=== PATIENT | female | born 1930 | race Caucasian/White ===

== ENCOUNTER 2017-03-22 12:27 | Emergency (ER) | payer MEDICARE, BC ==
[2017-03-22 12:31] VITALS: BP 196/93; PULSE 86; RESP 20; TEMP 98.4
--- NOTE | 2017-03-22 13:10 | XR ---
EXAMINATION TYPE: XR hand complete RT DATE OF EXAM: 03/22/2017 COMPARISON: NONE HISTORY: Fall, pain TECHNIQUE: Three-view right hand FINDINGS: Patient's ring remains in position during the exam There is an oblique fracture of the mid metacarpal of the middle finger. No additional fractures are identified. This has minimal diastases. Mild soft tissue swelling is present. IMPRESSION: 1. Oblique fracture middle digit metacarpal.
--- NOTE | 2017-03-22 13:12 | XR ---
EXAMINATION TYPE: XR wrist complete RT DATE OF EXAM: 03/22/2017 COMPARISON: NONE HISTORY: Fall, pain TECHNIQUE: 4 view right wrist FINDINGS: Patient's third metacarpal oblique fracture is evident within the [id number] There are degenerative changes at the first carpal metacarpal junction. No additional fractures are e vident. Some soft tissue swelling is over the dorsum of the hand. There is pain at the anatomic snuff box, nuclear medicine bone scan could be performed for additional evaluation. IMPRESSION: 1. Fracture of the third metacarpal. 2. No additional fractures within the wrist.
--- NOTE | 2017-03-22 13:18 | ED ---
General Adult HPI - General Chief complaint: Extremity Injury, Lower Stated complaint: Hand Injury Time Seen by Provider: 03/22/17 12:33 Source: patient, RN notes reviewed, old records reviewed Mode of arrival: ambulatory Limitations: no limitations - History of Present Illness Initial comments: This is an 87-year-old female ESS.. Patient fell about and half prior to arrival. Following on right outstretched hand. Mild abrasion right palm, complaining of middle finger pain. No other injuries, did not hit head. Patient denies being on blood thinners. Follows mechanical in nature - Related Data Home Medications Medication Instructions Recorded Confirmed ALPRAZolam [Xanax] 0.5 mg PO DAILY PRN 06/15/16 03/22/17 Atorvastatin Calcium [Lipitor] 10 mg PO DAILY 06/15/16 03/22/17 Levothyroxine Sodium [Synthroid] 125 mcg PO DAILY 06/15/16 03/22/17 cloNIDine HCL [Catapres] 1 tab PO DAILY 06/15/16 03/22/17 Allergies Allergy/AdvReac Type Severity Reaction Status Date / Time alendronate sodium Allergy Rash/Hives Verified 03/22/17 12:31 [From Fosamax] bacitracin Allergy Rash/Hives Verified 03/22/17 12:31 [From Neosporin ([id number])] denosumab [From Prolia] Allergy Anaphylaxis Verified 03/22/17 12:31 epinephrine Allergy Unknown Verified 03/22/17 12:31 ibuprofen [From Motrin] Allergy Unknown Verified 03/22/17 12:31 levofloxacin [From Levaquin] Allergy Rash/Hives Verified 03/22/17 12:31 neomycin Allergy Rash/Hives Verified 03/22/17 12:31 [From Neosporin ([id number])] polymyxin B Allergy Rash/Hives Verified 03/22/17 12:31 [From Neosporin ([id number])] ranitidine [From Zantac] Allergy Rash/Hives Verified 03/22/17 12:31 Sulfa (Sulfonamide Allergy Rash/Hives Verified 03/22/17 12:31 Antibiotics) Review of Systems ROS Statement: Those systems with pertinent positive or pertinent negative responses have been documented in the HPI. ROS Other: All systems not noted in ROS Statement are negative. Past Medical History Past Medical History: Hypertension History of Any Multi-Drug Resistant Organisms: None Reported Past Surgical History: Hysterectomy Additional Past Surgical History / Comment(s): rectocele, muscle transplants, wrist surgery Past Psychological History: No Psychological Hx Reported Smoking Status: Never smoker Past Alcohol Use History: Occasional Past Drug Use History: None Reported General Exam - General Exam Comments Initial Comments: Mild abrasion the palm of right hand, third metacarpal tenderness Limitations: no limitations General appearance: alert, in no apparent distress Head exam: Present: atraumatic, normocephalic, normal inspection Eye exam: Present: normal appearance, PERRL, EOMI. Absent: scleral icterus, conjunctival injection, periorbital swelling ENT exam: Present: normal exam, mucous membranes moist Neck exam: Present: normal inspection. Absent: tenderness, meningismus, lymphadenopathy Respiratory exam: Present: normal lung sounds bilaterally. Absent: respiratory distress, wheezes, rales, rhonchi, stridor Cardiovascular Exam: Present: regular rate, normal rhythm, normal heart sounds. Absent: systolic murmur, diastolic murmur, rubs, gallop, clicks GI/Abdominal exam: Present: soft, normal bowel sounds. Absent: distended, tenderness, guarding, rebound, rigid Extremities exam: Present: normal inspection, full ROM, normal capillary refill. Absent: tenderness, pedal edema, joint swelling, calf tenderness Back exam: Present: normal inspection Neurological exam: Present: alert, oriented X3, CN II-XII intact Psychiatric exam: Present: normal affect, normal mood Skin exam: Present: warm, dry, intact, normal color. Absent: rash Course Vital Signs 03/22/17 12:29 Temperature 98.4 F Pulse Rate 86 Respiratory 20 Rate Blood Pressure 196/93 O2 Sat by Pulse 96 Oximetry Procedures - Orthopedic Splinting/Casting Injury #1 Side: right Upper Extremity Injury Location: hand Upper Extremity Immobilizer: volar splint Medical Decision Making - Medical Decision Making 87-year-old ER status post fall, patient did sustain right third metacarpal spiral fracture nondisplaced closed fracture. A she'll be discharged home with pain control - Radiology Data Radiology results: report reviewed (X-ray right wrist right hand distal third metacarpals metacarpal spiral fracture nondisplaced), image reviewed Disposition Clinical Impression: Fracture of metacarpal of right hand, closed, Fracture of third metacarpal bone , Fall Disposition: HOME SELF-CARE Condition: Good Instructions: Hand Fracture (ED) Referrals: Mendoza Flores MD [Medical Doctor] - 1-2 days
[2017-03-22] MEDS ORDERED: DIPH,PERTUS(ACELL)TETVAC-LF 0.5 ML VIAL IM ONE (13:45)
== END 2017-03-22 14:12 | disposition home or self-care (01) ==
LOC: EC 12:27
DX: S62.302A Unspecified fracture of third metacarpal bone, right hand, initial encounter for closed fracture (principal); I10 Essential (primary) hypertension; Z23 Encounter for immunization; Z79.899 Other long term (current) drug therapy; Z88.1 Allergy status to other antibiotic agents; Z88.2 Allergy status to sulfonamides; Z88.6 Allergy status to analgesic agent; Z88.8 Allergy status to other drugs, medicaments and biological substances
CPT/HCPCS: 29125; 90471; 90715; 99284

== ENCOUNTER 2017-04-13 12:06 | Emergency (ER) | payer MEDICARE, BC ==
[2017-04-13] MEDS ORDERED: SODIUM CHLORIDE 0.9% 500 ML IV STA (13:06)
[2017-04-13] MEDS ORDERED: SODIUM CHLORIDE 0.9% 1,000 ML IV STA (13:06)
--- NOTE | 2017-04-13 13:25 | ED ---
General Adult HPI - General Chief complaint: Upper Respiratory Infection Stated complaint: POSS PNEUMONIA Time Seen by Provider: 04/13/17 12:38 Source: patient, family, RN notes reviewed Mode of arrival: wheelchair Limitations: no limitations - History of Present Illness Initial comments: If complaint history of present illness 87-year-old female here with a complaint of feeling profoundly weak. She reports she felt this way in [place] 6 months ago was diagnosed with pneumonia. Also with the same time was suspicious for a mass in her lung. After the pneumonia was completed she's had x-rays and CAT scans. The CAT scan suggesting chronic changes. She is following up with a local physician and does have a CAT scan reordered for next month. Patient's denying chest pain shortness breath or GI problems no urinary problems. - Related Data Home Medications Medication Instructions Recorded Confirmed ALPRAZolam [Xanax] 0.5 mg PO BID PRN 06/15/16 04/13/17 Atorvastatin Calcium [Lipitor] 10 mg PO DAILY 06/15/16 04/13/17 cloNIDine HCL [Catapres] 0.2 mg PO HS 06/15/16 04/13/17 Aspirin EC [Ecotrin Low Dose] 81 mg PO DAILY 03/22/17 04/13/17 Calcium Carbonate [Calcium] 1,200 mg PO DAILY 03/22/17 04/13/17 Fexofenadine HCl [Kanika Allergy] 180 mg PO QAM 03/22/17 04/13/17 Folic Acid 0.4 mg PO DAILY 03/22/17 04/13/17 Levothyroxine Sodium [Synthroid] 137 mcg PO [id number] 03/22/17 04/13/17 Montelukast [Singulair] 10 mg PO HS 03/22/17 04/13/17 Multivitamins, Thera [Multivitamin 1 tab PO DAILY 03/22/17 04/13/17 (formulary)] [place]-3/Dha/Epa/Fish Oil [Fish Oil 2 cap PO DAILY 03/22/17 04/13/17 EC 1,200 mg Softgel] amLODIPine [Norvasc] 5 mg PO DAILY 03/22/17 04/13/17 Cholecalciferol [Vitamin D3] 1,000 unit PO DAILY 04/13/17 04/13/17 Dicyclomine [Bentyl] 20 mg PO DAILY PRN 04/13/17 04/13/17 Loperamide HCl [Imodium A-D] 2 mg PO DAILY PRN 04/13/17 04/13/17 Allergies Allergy/AdvReac Type Severity Reaction Status Date / Time acetaminophen [From Percocet] Allergy Unknown Verified 04/13/17 14:36 alendronate sodium Allergy Rash/Hives Verified 04/13/17 14:36 [From Fosamax] bacitracin Allergy Rash/Hives Verified 04/13/17 14:36 [From Neosporin ([id number])] denosumab [From Prolia] Allergy Anaphylaxis Verified 04/13/17 14:36 epinephrine Allergy Unknown Verified 04/13/17 14:36 ibuprofen [From Motrin] Allergy Unknown Verified 04/13/17 14:36 levofloxacin [From Levaquin] Allergy Rash/Hives Verified 04/13/17 14:36 neomycin Allergy Rash/Hives Verified 04/13/17 14:36 [From Neosporin ([id number])] oxycodone [From Percocet] Allergy Unknown Verified 04/13/17 14:36 polymyxin B Allergy Rash/Hives Verified 04/13/17 14:36 [From Neosporin ([id number])] ranitidine [From Zantac] Allergy Rash/Hives Verified 04/13/17 14:36 Sulfa (Sulfonamide Allergy Rash/Hives Verified 04/13/17 14:36 Antibiotics) Review of Systems ROS Statement: Those systems with pertinent positive or pertinent negative responses have been documented in the HPI. Review of systems no headache or visual acuity changes no chest pain no palpitations denies shortness of breath denies abdominal pain denies frequency urgency dysuria and denies back pain. Denies any neuro deficits. Just profoundly weak when she is normally hyperactive. All systems are reviewed. Past medical problems significant for hypertension, pneumonia. She's had a hysterectomy and rectocele breast implants. Family history not respiratory. ALLERGIES as listed. Patient also he recently had a broken hand she has a cast on the hand. She has due to pressure irritation blisters between her middle and ring finger she is applying Bactroban. She will have gauze placed to absorb moisture noted prevent irritation fingers will be lightly taped with paper tape. ROS Other: All systems not noted in ROS Statement are negative. Past Medical History Past Medical History: Hypertension History of Any Multi-Drug Resistant Organisms: None Reported Past Surgical History: Hysterectomy Additional Past Surgical History / Comment(s): rectocele, muscle transplants, wrist surgery Past Psychological History: No Psychological Hx Reported Smoking Status: Never smoker Past Alcohol Use History: Occasional Past Drug Use History: None Reported General Exam - General Exam Comments Initial Comments: General: The patient is awake and alert, in no distress, and does not appear acutely ill. HEENT family weak and tired yesterday. The patient's vital signs are temperature 98.9 pulse 82 respiratory rate 20 pulse ox 90% room air blood pressure 172/90 Eye: Pupils are equal, round and reactive to light, extra-ocular movements are intact ; there is normal conjunctiva bilaterally. No signs of icterus. Ears, nose, mouth and throat: There are moist mucous membranes and no oral lesions. Neck: The neck is supple, there is no tenderness. Cardiovascular: There is a regular rate and rhythm. No murmur, rub or gallop is appreciated. Respiratory: Lungs are clear to auscultation, respirations are non-labored, breath sounds are equal. No wheezes, stridor, rales, or rhonchi. Gastrointestinal: Soft, non-distended, non-tender abdomen without masses or organomegaly noted. There is no rebound or guarding present. No CVA tenderness. Bowel sounds are unremarkable. Back: There is no tenderness to palpation in the midline. There is no obvious deformity. No rashes noted. Musculoskeletal: Normal ROM, no tenderness, There is no pedal edema. There is no calf tenderness or swelling. Sensation intact. Pulses equal bilaterally 2+. Neurological: CN II-XII intact, There are no obvious motor or sensory deficits. Coordination appears grossly intact. Speech is normal. No neuro deficits, due to her weakness she states she had a balance problem Skin: Skin is warm and dry and no rashes or lesions are noted. Limitations: no limitations Course Vital Signs 04/13/17 04/13/17 12:08 14:31 Temperature 98.9 F Pulse Rate 82 81 Respiratory 20 18 Rate Blood Pressure 172/90 162/85 O2 Sat by Pulse 98 98 Oximetry EKG Findings - EKG Comments: EKG Findings:: EKG was done and reviewed at 1339 showing normal sinus rhythm with possible left atrial enlargement left axis deviation no acute ST elevation no ectopy no ischemic changes. Rate 80 OK interval is 150 QRS [address] Buchanan Medical Decision Making - Medical Decision Making Medical decision making; the patient's white count 6.9 hemoglobin 13 and hematocrit 39. Potassium 0.1. BUN 12 creatinine 0.69 GFR greater than 60. Urine is clean no signs of infection. Troponin was 0.012. X-ray of the chest was done AP and lateral views and reviewed by radiologist his impression is curvilinear calcification in the right breast is noted. Cardiac silhouette is within the normal limits. There is no pneumothorax or pleural effusion. Impression no acute cardiopulmonary process. As read by Dr. Crews Reviewed with the patient the chest x-ray results of the lab results. The patient's very alert oriented reactive. She been advised follow-up with family physician. - Lab Data Result diagrams: 04/13/17 13:40 04/13/17 13:40 Lab Results 04/13/17 04/13/17 04/13/17 Range/Units 13:40 13:40 13:40 WBC 6.9 (3.8-10.6) k/uL RBC 4.36 (3.80-5.40) m/uL Hgb 13.4 (11.4-16.0) gm/dL Hct 39.1 (34.0-46.0) % MCV 89.5 (80.0-100.0) fL MCH 30.7 (25.0-35.0) pg MCHC 34.3 (31.0-37.0) g/dL RDW 13.8 (11.5-15.5) % Plt Count 194 (150-450) k/uL Neutrophils % 75 % Lymphocytes % 15 % Monocytes % 6 % Eosinophils % 2 % Basophils % 0 % Neutrophils # 5.2 (1.3-7.7) k/uL Lymphocytes # 1.0 (1.0-4.8) k/uL Monocytes # 0.4 (0-1.0) k/uL Eosinophils # 0.1 (0-0.7) k/uL Basophils # 0.0 (0-0.2) k/uL Sodium 141 (137-145) mmol/L Potassium 4.1 (3.5-5.1) mmol/L Chloride 106 (98-107) mmol/L Carbon Dioxide 26 (22-30) mmol/L Anion Gap 9 mmol/L BUN 12 (7-17) mg/dL Creatinine 0.69 (0.52-1.04) mg/dL Est GFR (MDRD) Af Amer >60 (>60 ml/min/1.73 sqM) Est GFR (MDRD) Non-Af >60 (>60 ml/min/1.73 sqM) Glucose 91 (74-99) mg/dL Calcium 9.2 (8.4-10.2) mg/dL Total Bilirubin 0.8 (0.2-1.3) mg/dL AST 23 (14-36) U/L ALT 35 (9-52) U/L Alkaline Phosphatase 99 (38-126) U/L Total Creatine Kinase 58 (30-135) U/L CK-MB (CK-2) 1.2 (0.0-2.4) ng/mL CK-MB (CK-2) Rel Index 2.1 Troponin I <0.012 (0.000-0.034) ng/mL Total Protein 6.4 (6.3-8.2) g/dL Albumin 4.0 (3.5-5.0) g/dL Urine Color Urine Appearance (Clear) Urine pH (5.0-8.0) Ur Specific [place] (1.001-1.035) Urine Protein (Negative) Urine Glucose (UA) (Negative) Urine Ketones (Negative) Urine Blood (Negative) Urine Nitrite (Negative) Urine Bilirubin (Negative) Urine Urobilinogen (<2.0) mg/dL Ur Leukocyte Esterase (Negative) 04/13/17 Range/Units 13:40 WBC (3.8-10.6) k/uL RBC (3.80-5.40) m/uL Hgb (11.4-16.0) gm/dL Hct (34.0-46.0) % MCV (80.0-100.0) fL MCH (25.0-35.0) pg MCHC (31.0-37.0) g/dL RDW (11.5-15.5) % Plt Count (150-450) k/uL Neutrophils % % Lymphocytes % % Monocytes % % Eosinophils % % Basophils % % Neutrophils # (1.3-7.7) k/uL Lymphocytes # (1.0-4.8) k/uL Monocytes # (0-1.0) k/uL Eosinophils # (0-0.7) k/uL Basophils # (0-0.2) k/uL Sodium (137-145) mmol/L Potassium (3.5-5.1) mmol/L Chloride (98-107) mmol/L Carbon Dioxide (22-30) mmol/L Anion Gap mmol/L BUN (7-17) mg/dL Creatinine (0.52-1.04) mg/dL Est GFR (MDRD) Af Amer (>60 ml/min/1.73 sqM) Est GFR (MDRD) Non-Af (>60 ml/min/1.73 sqM) Glucose (74-99) mg/dL Calcium (8.4-10.2) mg/dL Total Bilirubin (0.2-1.3) mg/dL AST (14-36) U/L ALT (9-52) U/L Alkaline Phosphatase (38-126) U/L Total Creatine Kinase (30-135) U/L CK-MB (CK-2) (0.0-2.4) ng/mL CK-MB (CK-2) Rel Index Troponin I (0.000-0.034) ng/mL Total Protein (6.3-8.2) g/dL Albumin (3.5-5.0) g/dL Urine Color Light Yellow Urine Appearance Clear (Clear) Urine pH 7.5 (5.0-8.0) Ur Specific [place] 1.003 (1.001-1.035) Urine Protein Negative (Negative) Urine Glucose (UA) Negative (Negative) Urine Ketones Negative (Negative) Urine Blood Negative (Negative) Urine Nitrite Negative (Negative) Urine Bilirubin Negative (Negative) Urine Urobilinogen <2.0 (<2.0) mg/dL Ur Leukocyte Esterase Negative (Negative) Disposition Clinical Impression: Weakness generalized Disposition: HOME SELF-CARE Condition: Stable Instructions: Weakness (ED) Additional Instructions: Stay hydrated. Get a good night's rest. Follow-up with family physician. Referrals: Jean Harrington DO [Primary Care Provider] - 1-2 days Time of Disposition: 15:01
[2017-04-13 14:04] LABS: Basophils % (A) 0 %; CH 31.4; CHCM 35.3; Eosinophils # (A) 0.1 k/uL (0-0.7); Eosinophils % (A) 2 %; HCT 39.1 % (34.0-46.0); HGB 13.4 gm/dL (11.4-16.0); Luc # (Auto) 0.13; Luc % (Auto) 2; Lymphocytes % (A) 15 %; MCH 30.7 pg (25.0-35.0); MCHC 34.3 g/dL (31.0-37.0); MCV 89.5 fL (80.0-100.0); Mean Platelet Volume 7.7; Monocytes # (A) 0.4 k/uL (0-1.0); Monocytes % (A) 6 %; Neutrophils # (A) 5.2 k/uL (1.3-7.7); Neutrophils % (A) 75 %; RBC 4.36 m/uL (3.80-5.40); RDW 13.8 % (11.5-15.5); WBC 6.9 k/uL (3.8-10.6); WBC (Perox) 7.15
[2017-04-13 14:06] LABS: Appearance,Urine Clear (Clear); Bilirubin,Urine Negative (Negative); Glucose,Urine (UA) Negative (Negative); Ketones,Urine Negative (Negative); Leukocyte Esterase,Urine Negative (Negative); Nitrite,Urine Negative (Negative); PH, Urine 7.5 (5.0-8.0); Protein,Urine Negative (Negative); Specific Gravity,Urine 1.003 (1.001-1.035); UA Billing (MACRO vs. MICRO) CHEM; Urobilinogen,Urine <2.0 mg/dL (<2.0)
[2017-04-13 14:14] LABS: ALT 35 U/L (9-52); AST 23 U/L (14-36); Alkaline Phosphatase 99 U/L (38-126); Anion Gap 9 mmol/L; Blood Urea Nitrogen 12 mg/dL (7-17); Calcium 9.2 mg/dL (8.4-10.2); Carbon Dioxide 26 mmol/L (22-30); Chloride 106 mmol/L (98-107); Glucose 91 mg/dL (74-99); Non-African American GFR(MDRD) >60 (>60 ml/min/1.73 sqM); Potassium 4.1 mmol/L (3.5-5.1); Sodium 141 mmol/L (137-145); Total Bilirubin 0.8 mg/dL (0.2-1.3); Total Protein 6.4 g/dL (6.3-8.2)
[2017-04-13 14:28] LABS: Creatine Kinase 58 U/L (30-135)
--- NOTE | 2017-04-13 14:32 | XR ---
EXAMINATION TYPE: XR chest 2V DATE OF EXAM: 04/13/2017 COMPARISON: NONE HISTORY: Chest pain TECHNIQUE: Frontal and lateral views of the chest are obtained. FINDINGS: Curvilinear calcification of the right breast is noted. Cardiac silhouette is within mason l limits. There is no pneumothorax or pleural effusion. IMPRESSION: No acute cardiopulmonary process.
[2017-04-13 14:40] LABS: Creatine Kinase MB 1.2 ng/mL (0.0-2.4); Troponin I <0.012 ng/mL (0.000-0.034)
[2017-04-13 15:16] VITALS: BP 141/82; PULSE 78; RESP 14; TEMP 98
== END 2017-04-13 15:25 | disposition home or self-care (01) ==
LOC: EC 12:06
DX: R53.1 Weakness (principal); I10 Essential (primary) hypertension; Z88.1 Allergy status to other antibiotic agents; Z88.2 Allergy status to sulfonamides; Z88.5 Allergy status to narcotic agent; Z88.6 Allergy status to analgesic agent; Z88.8 Allergy status to other drugs, medicaments and biological substances; Z79.82 Long term (current) use of aspirin; Z79.899 Other long term (current) drug therapy
CPT/HCPCS: 36415; 71020; 80053; 81003; 82550; 82553; 84439; 84443; 84484; 85025; 87086; 93005; 96360; 99284

== ENCOUNTER → 2017-05-19 | Outpatient (CLI) | payer MEDICARE, BC ==
--- NOTE | 2017-05-20 09:03 | MM ---
Reason for exam: screening (asymptomatic). Last mammogram was performed 1 year ago. History: Patient has history of other cancer at age 82. Family history of breast cancer in mother at age 68, breast cancer in 2 maternal cousins, and breast cancer in 2 paternal cousins. Retro-pectoral silicone gel implants in both breasts, 1975. Excisional biopsy of the left breast, 1954. Took estrogen for 42 years beginning at age 31. Physical Findings: A clinical breast exam by your physician is recommended on an annual basis and results should be correlated with mammographic findings. MG 3D Screen Mammo Imp/Cad Bilateral CC, MLO, and ID view(s) were taken. Prior study comparison: May 17, 2016, bilateral MG 3d screen mammo imp/cad. January 04, 2015, bilateral MG diagnostic mammo w CAD LESLY. The breast tissue is heterogeneously dense. This may lower the sensitivity of mammography. Stable vascular calcifications. Bilateral implants are intact. ASSESSMENT: Benign, BI-RAD 2 RECOMMENDATION: Routine screening mammogram of both breasts in 1 year.
== END | disposition home or self-care (01) ==
LOC: RADMAMWWP 14:16
PROVIDERS: ATTEND Family Medicine
DX: Z12.31 Encounter for screening mammogram for malignant neoplasm of breast (principal)
CPT/HCPCS: 77063; G0202

== ENCOUNTER 2018-01-06 11:55 | Inpatient (IN) | payer MEDICARE, BC ==
--- NOTE | 2018-01-06 12:10 | ED ---
General Adult HPI - General Chief complaint: Fall Stated complaint: Fall Time Seen by Provider: 01/06/18 12:00 Source: patient, EMS, RN notes reviewed Mode of arrival: EMS Limitations: no limitations - History of Present Illness Initial comments: This is an 87-year-old female who states she was walking steps and fell on the last step onto her left side patient complains of left wrist pain and left hip pain. Patient is able to move the hip but it hurts in her left buttocks. Patient denies hitting her head patient denies any loss of consciousness. Patient denies any neck pain patient denies numbness weakness. Patient denies any back pain patient denies any chest pain. Patient denies any abdominal pain. Patient denies any pain on the right extremity. Patient's left hand has no pain the elbow is no pain in the shoulder has no pain only her left wrist. Patient's knees ankles and feet have no pain. Patient's buttocks on the left is tender to palpation she does appear to have full range of motion of the hip however - Related Data Home Medications Medication Instructions Recorded Confirmed ALPRAZolam [Xanax] 0.5 mg PO BID PRN 06/15/16 01/06/18 Atorvastatin Calcium [Lipitor] 10 mg PO DAILY 06/15/16 01/06/18 cloNIDine HCL [Catapres] 0.2 mg PO HS 06/15/16 01/06/18 Fexofenadine HCl [Kanika Allergy] 180 mg PO QAM 03/22/17 01/06/18 Levothyroxine Sodium [Synthroid] 137 mcg PO DAILY 03/22/17 01/06/18 Montelukast [Singulair] 10 mg PO HS 03/22/17 01/06/18 Multivitamins, Thera [Multivitamin 1 tab PO DAILY 03/22/17 01/06/18 (formulary)] amLODIPine [Norvasc] 5 mg PO DAILY 03/22/17 01/06/18 Dicyclomine [Bentyl] 20 mg PO DAILY PRN 04/13/17 01/06/18 Allergies Allergy/AdvReac Type Severity Reaction Status Date / Time acetaminophen [From Percocet] Allergy Unknown Verified 01/06/18 12:03 alendronate sodium Allergy Rash/Hives Verified 01/06/18 12:03 [From Fosamax] bacitracin Allergy Rash/Hives Verified 01/06/18 12:03 [From Neosporin ([id number])] denosumab [From Prolia] Allergy Anaphylaxis Verified 01/06/18 12:03 epinephrine Allergy Unknown Verified 01/06/18 12:03 ibuprofen [From Motrin] Allergy Unknown Verified 01/06/18 12:03 levofloxacin [From Levaquin] Allergy Rash/Hives Verified 01/06/18 12:03 neomycin Allergy Rash/Hives Verified 01/06/18 12:03 [From Neosporin ([id number])] oxycodone [From Percocet] Allergy Unknown Verified 01/06/18 12:03 polymyxin B Allergy Rash/Hives Verified 01/06/18 12:03 [From Neosporin ([id number])] ranitidine [From Zantac] Allergy Rash/Hives Verified 01/06/18 12:03 Sulfa (Sulfonamide Allergy Rash/Hives Verified 01/06/18 12:03 Antibiotics) Review of Systems ROS Statement: Those systems with pertinent positive or pertinent negative responses have been documented in the HPI. ROS Other: All systems not noted in ROS Statement are negative. Past Medical History Past Medical History: Hypertension Additional Past Medical History / Comment(s): IBS, History of Any Multi-Drug Resistant Organisms: None Reported Past Surgical History: Hysterectomy Additional Past Surgical History / Comment(s): rectocele, muscle transplants, wrist surgery Past Psychological History: No Psychological Hx Reported Smoking Status: Never smoker Past Alcohol Use History: Occasional Past Drug Use History: None Reported General Exam - General Exam Comments Initial Comments: GENERAL: Patient is well-developed and well-nourished. Patient is nontoxic and well- hydrated and is in mild distress. ENT: Neck is soft and supple. No significant lymphadenopathy is noted. Oropharynx is clear. Moist mucous membranes. Neck has full range of motion without eliciting any pain. EYES: The sclera were anicteric and conjunctiva were pink and moist. Extraocular movements were intact and pupils were equal round and reactive to light. Eyelids were unremarkable. PULMONARY: Unlabored respirations. Good breath sounds bilaterally. No audible rales rhonchi or wheezing was noted. CARDIOVASCULAR: There is a regular rate and rhythm without any murmurs gallops or rubs. ABDOMEN: Soft and nontender with normal bowel sounds. SKIN: Skin is clear with no lesions or rashes and otherwise unremarkable. NEUROLOGIC: Patient is alert and oriented x3. Cranial nerves II through XII are grossly intact. Motor and sensory are also intact. Normal speech, volume and content. Symmetrical smile. MUSCULOSKELETAL: Normal extremities with adequate strength and full range of motion. Patient has tenderness on the posterior aspect of the left wrist no scaphoid tenderness. Patient has tenderness in the left buttocks region. LYMPHATICS: No significant lymphadenopathy is noted PSYCHIATRIC: Normal psychiatric evaluation. Normal interpersonal interactions appears functionally intact in deals appropriately with others. No signs of depression. No signs of anxiety. Limitations: no limitations Course Vital Signs 01/06/18 01/06/18 11:59 14:48 Temperature 98.4 F 98.9 F Pulse Rate 78 83 Respiratory 18 18 Rate Blood Pressure 145/81 139/73 O2 Sat by Pulse 99 96 Oximetry Medical Decision Making - Medical Decision Making Patient's CT of the hip showed no acute injury. Patient still unable to ambulate even with assistance. I spoke with Dr. Gaming he agreed to admit the patient admitted Disposition Clinical Impression: Fall, Hip pain, Unable to ambulate Disposition: ADMITTED IP TO THIS HOSP Referrals: Jean Harrington DO [Primary Care Provider] - 1-2 days Time of Disposition: 15:33
--- NOTE | 2018-01-06 12:43 | XR ---
EXAMINATION TYPE: XR wrist complete LT DATE OF EXAM: 01/06/2018 CLINICAL HISTORY: Fall and left wrist pain TECHNIQUE: Frontal, lateral and oblique images of the left wrist are obtained. COMPARISON: None FINDINGS: There is no acute fracture/dislocation evident in the left wrist. The joint spaces in the left wrist demonstrate joint space narrowing at the scaphoid trapezium joint and first carpometacarp al joint as well as sclerosis and bony proliferation. There is also generalized osseous demineralizat ion. The overlying soft tissue appears unremarkable. IMPRESSION: There is no acute fracture or dislocation in the left wrist. Moderate arthropathy of the first carpometacarpal joint with distribution indicative of osteoarthritis and generalized osseous d emineralization.
--- NOTE | 2018-01-06 12:46 | XR ---
EXAMINATION TYPE: XR Hip LT and AP Pelvis DATE OF EXAM: 01/06/2018 COMPARISON: NONE HISTORY: Fall and left hip pain TECHNIQUE: A single AP view of the pelvis is obtained. Two views of the left hip are obtained. FINDINGS: There is no acute fracture/dislocation evident in the pelvis. The hip and sacroiliac join t spaces are narrowed with sclerosis and marginal osteophytes of the right femoral acetabular joint. The overlying soft tissue appears unremarkable. Two views of left hip show no acute fracture or dislocation. No focal lytic or sclerotic lesion seen in the proximal left femur. The overlying soft tissue is unremarkable. IMPRESSION: There is no acute fracture or dislocation in the pelvis or left hip. Moderate femoral ac etabular arthropathy and mild left femoral acetabular arthropathy.
--- NOTE | 2018-01-06 14:21 | CT ---
EXAMINATION TYPE: CT hip LT wo con DATE OF EXAM: 01/06/2018 COMPARISON: NONE HISTORY: Patient complains of left hip pain post fall. CT DLP: 332 mGycm Automated exposure control for dose reduction was used. FINDINGS: No evidence of left hip fracture is identified. There is subchondral sclerosis of the left femoral he ad and of the acetabulum from near [id number] articulation with subchondral cysts of the acetabular roof and subchondral cysts of the posterior femoral head. The femoral head maintains a normal rounde d contour. Small marginal osteophytes are seen of the left femoral head and acetabulum. Greater and l ivett trochanter are intact. There is no evidence of intramuscular hematoma or joint effusion. There is mild generalized osseous demineralization. IMPRESSION: NO EVIDENCE OF LEFT HIP FRACTURE OR DISLOCATION. 2. MODERATE LEFT FEMORAL ACETABULAR ARTHROPATHY WITH NEAR [id number] ARTICULATION OF THE FEMORAL HE AD AND ACETABULUM ALTHOUGH THE FEMORAL HEAD MAINTAINS ITS NORMAL ROUNDED CONTOUR THERE IS OPPOSING GARCIA RFACE SCLEROSIS. THIS IS LIKELY DEGENERATIVE OR COULD RELATE TO OSSEOUS CONTUSION.
[2018-01-06] MEDS ORDERED: Acetaminophen-Codeine 300-30mg TAB PO STA (14:39)
[2018-01-06] MEDS ORDERED: SODIUM CHLORIDE 0.9% 1,000 ML IV ONE (15:35)
[2018-01-06 15:51] LABS: Basophils # (A) 0.1 k/uL (0-0.2); Basophils % (A) 1 %; Eosinophils # (A) 0.2 k/uL (0-0.7); Eosinophils % (A) 3 %; HCT 38.1 % (34.0-46.0); Lymphocytes # (A) 0.5 k/uL (1.0-4.8); Lymphocytes % (A) 7 %; MCH 30.6 pg (25.0-35.0); MCHC 34.3 g/dL (31.0-37.0); MCV 89.2 fL (80.0-100.0); Mean Platelet Volume 7.2; Monocytes # (A) 0.3 k/uL (0-1.0); Monocytes % (A) 4 %; Neutrophils # (A) 6.3 k/uL (1.3-7.7); Neutrophils % (A) 85 %; Platelet Count 168 k/uL (150-450); RBC 4.26 m/uL (3.80-5.40); RDW 13.5 % (11.5-15.5); WBC 7.4 k/uL (3.8-10.6)
[2018-01-06 15:56] LABS: ALT 45 U/L (9-52); AST 37 U/L (14-36); Albumin 3.9 g/dL (3.5-5.0); Alkaline Phosphatase 101 U/L (38-126); Anion Gap 13 mmol/L; Blood Urea Nitrogen 17 mg/dL (7-17); Carbon Dioxide 25 mmol/L (22-30); Chloride 103 mmol/L (98-107); Glucose 90 mg/dL (74-99); Sodium 141 mmol/L (137-145); Total Bilirubin 0.7 mg/dL (0.2-1.3); Total Protein 6.1 g/dL (6.3-8.2)
[2018-01-06] MEDS: cloNIDine HCL 0.2 MG TAB PO SCH (21:35)
[2018-01-06] MEDS: ALPRAZolam 0.5 MG TAB PO PRN (21:35)
[2018-01-06] MEDS: amLODIPine 5 MG TAB PO SCH (21:36)
[2018-01-06] MEDS: MONTELUKAST 10 MG TAB PO SCH (21:36)
[2018-01-07] MEDS: Acetaminophen-Codeine 300-30mg TAB PO PRN ×2 (01:49→07:16)
[2018-01-07] MEDS: LEVOTHYROXINE 137 MCG TAB PO SCH (06:26)
[2018-01-07] MEDS: ATORVASTATIN 10 MG TAB PO SCH (10:15)
[2018-01-07] MEDS: amLODIPine 5 MG TAB PO SCH ×2 (10:15→10:16)
--- NOTE | 2018-01-07 10:24 | P.HPOR ---
History of Present Illness H&P Date: 01/07/18 Chief Complaint: Left wrist and low back pain This is an 87-year-old female admitted through the emergency department after falling and sustaining injury to her low back, hip and left wrist. The patient states that she fell and put her left arm out to catch her self. She states it was her right hip that was hurting, the daughter states it was her left. She is complaining of no hip pain at this moment. Her main complaint is the left wrist. She does complain of some low back pain as well. She has no complaints of neurologic dysfunction to the lower extremities. No bowel or bladder dysfunction. Past Medical History Past Medical History: Cancer, Hyperlipidemia, Hypertension, Liver Disease, Pneumonia, Thyroid Disorder Additional Past Medical History / Comment(s): bsal and squamous skin cancers removed,IBS, past rt broken hand(casted), osteoporosis, polios, sensative skin. 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, bladder supspension, rt wrist surgery to rpair nerve/ tendons(hand went thru a window), aung cataracts-lens implants,partial hysterectomy, skincancer removed, x3 tonsil sx Past Anesthesia/Blood Transfusion Reactions: Motion Sickness Smoking Status: Never smoker - Past Family History Sister(s) Family Medical History: CVA/TIA Daughter(s) Family Medical History: Fibromyalgia Medications and Allergies Home Medications Medication Instructions Recorded Confirmed Type ALPRAZolam [Xanax] 0.5 mg PO BID PRN 06/15/16 01/06/18 History Atorvastatin Calcium [Lipitor] 10 mg PO DAILY 06/15/16 01/06/18 History cloNIDine HCL [Catapres] 0.2 mg PO HS 06/15/16 01/06/18 History Fexofenadine HCl [Kanika Allergy] 180 mg PO QAM 03/22/17 01/06/18 History Levothyroxine Sodium [Synthroid] 137 mcg PO DAILY 03/22/17 01/06/18 History Montelukast [Singulair] 10 mg PO HS 03/22/17 01/06/18 History Multivitamins, Thera [Multivitamin 1 tab PO DAILY 03/22/17 01/06/18 History (formulary)] amLODIPine [Norvasc] 5 mg PO DAILY 03/22/17 01/06/18 History Dicyclomine [Bentyl] 20 mg PO DAILY PRN 04/13/17 01/06/18 History Allergies Allergy/AdvReac Type Severity Reaction Status Date / Time acetaminophen [From Percocet] Allergy Unknown Verified 01/06/18 12:03 alendronate sodium Allergy Rash/Hives Verified 01/06/18 12:03 [From Fosamax] bacitracin Allergy Rash/Hives Verified 01/06/18 12:03 [From Neosporin ([id number])] denosumab [From Prolia] Allergy Anaphylaxis Verified 01/06/18 12:03 epinephrine Allergy Unknown Verified 01/06/18 12:03 ibuprofen [From Motrin] Allergy Unknown Verified 01/06/18 12:03 levofloxacin [From Levaquin] Allergy Rash/Hives Verified 01/06/18 12:03 neomycin Allergy Rash/Hives Verified 01/06/18 12:03 [From Neosporin ([id number])] oxycodone [From Percocet] Allergy Unknown Verified 01/06/18 12:03 polymyxin B Allergy Rash/Hives Verified 01/06/18 12:03 [From Neosporin ([id number])] ranitidine [From Zantac] Allergy Rash/Hives Verified 01/06/18 12:03 Sulfa (Sulfonamide Allergy Rash/Hives Verified 01/06/18 12:03 Antibiotics) Physical Examination This is a pleasant 87-year-old female in no acute distress. She is alert and oriented 3 at this time. Her daughter is present at bedside. Exam of the head neck reveal no obvious deformity. She has fairly good cervical spine motion without difficulty or pain. Exam of the upper extremities reveals swelling and ecchymosis to the dorsum of the left wrist. There is pain on palpation about the mid carpal region. Minimal tenderness about the distal radius and ulna. There is mild basilar joint tenderness. There is arthritic deformity throughout her hands. Neurovascular status to the upper extremities is intact. Exam of the low back reveals no obvious deformity. There is pain with palpation directly over the spinous process and the lower lumbar region. No paraspinal musculature tenderness. Exam of the lower extremities reveals no obvious deformity. There are is no shortening or rotational deformity. She is able to lift each leg off the bed independently. She has full internal/external rotation without difficulty or pain. Foot and ankle motion. Pedal pulses +2/4 bilaterally. Neurovascular status to the lower extremities is intact. Results X-rays of the left wrist show moderate to severe arthritis, prickly at the basal joint. No obvious fracture identified. X-ray and CT of the pelvis revealed no hip fracture. No rami fractures noted. Moderate to severe arthritis of the hip noted. - Labs Labs: Abnormal Lab Results - Last 24 Hours (Table) 01/06/18 01/06/18 Range/Units 15:37 15:37 Lymphocytes # 0.5 L (1.0-4.8) k/uL AST 37 H (14-36) U/L Total Protein 6.1 L (6.3-8.2) g/dL H & H 01/06/18 Range/Units 15:37 Hgb 13.0 (11.4-16.0) gm/dL Hct 38.1 (34.0-46.0) % Result Diagrams: 01/06/18 15:37 01/06/18 15:37 Assessment and Plan (1) Low back pain Current Visit: Yes Status: Acute Code(s): M54.5 - LOW BACK PAIN SNOMED Code(s): 853665657 (2) Contusion of left wrist Current Visit: Yes Status: Acute Code(s): S60.212A - CONTUSION OF LEFT WRIST , INITIAL ENCOUNTER SNOMED Code(s): 69325744376703685 (3) Fall Current Visit: Yes Status: Acute Code(s): W19.XXXA - UNSPECIFIED FALL, INITIAL ENCOUNTER SNOMED Code(s): 4000868 (4) Hip pain Current Visit: Yes Status: Acute Code(s): M25.559 - PAIN IN UNSPECIFIED HIP SNOMED Code(s): 17664145 (5) Unable to ambulate Current Visit: Yes Status: Acute Code(s): R26.2 - DIFFICULTY IN WALKING, NOT ELSEWHERE CLASSIFIED SNOMED Code(s): 464950353 Plan: The clinical and x-ray findings are discussed with the patient and her family. I have placed the left wrist in a splint for comfort and immobilization. I've cut the 2 rings off of her fingers of the left hand. There is recommended that she have an x-ray of the lumbar spine to rule out compression fracture. If x- rays are negative she may get up with physical therapy today. We will continue to follow.
[2018-01-07 11:23] VITALS: BMI 15.9
--- NOTE | 2018-01-07 11:32 | XR ---
Lumbar spine HISTORY: Low back pain, trauma 3 views of the lumbar spine Bone mineralization is reduced which may limit sensitivity. Lumbar vertebral body height, alignment a re maintained. Sclerosis present in the posterior elements of the lower lumbar spine compatible with facet arthropathy. Disc spaces are maintained. IMPRESSION: No acute fracture or subluxation. Osteopenia as described. Facet arthropathy.
[2018-01-07] MEDS: MULTIVITAMINS, THERA 1 EACH TAB PO SCH (12:12)
[2018-01-07] MEDS: MONTELUKAST 10 MG TAB PO SCH (20:01)
[2018-01-07] MEDS: cloNIDine HCL 0.2 MG TAB PO SCH (20:01)
[2018-01-07] MEDS: ALPRAZolam 0.5 MG TAB PO PRN (21:17)
[2018-01-08] MEDS: LEVOTHYROXINE 137 MCG TAB PO SCH (05:32)
--- NOTE | 2018-01-08 07:06 | CONS ---
CONSULTATION DATE OF CONSULTATION: 01/07/2018 REASON FOR CONSULTATION: Medical management requested by Dr. Gaming. CONSULTATION: This is a very pleasant 87-year-old patient follows with Dr. Harrington. The patient's chronic stable medical conditions include hypertension, hyperlipidemia, hypothyroid, and urine incontinence. The patient was at the last step of her basement when she took a fall, injuring her left wrist, some shoulder injury and some hip injury. The patient had extensive x-rays and CAT scan and no obvious fracture was detected. The patient is admitted as a trauma admission to orthopedic service. The patient has some pain and the patient rather frail. Patient has tried different medications for osteoporosis, but has had with side effects. The patient also had polio affecting some right side. REVIEW OF SYSTEMS: CONSTITUTIONAL: None. HEENT: None. RESPIRATORY: None. CARDIOVASCULAR: None. GASTROINTESTINAL: None. GENITOURINARY: Some incontinence. DERMATOLOGICAL: Some bruising. HEMATOLOGICAL: None. LYMPHATICS: None. PSYCHIATRY: None. NEUROLOGICAL: None. MUSCULOSKELETAL: Aches and pains in different joints. PAST MEDICAL HISTORY: Hyperlipidemia, hypertension, hypothyroidism, basal and squamous cell skin cancer, irritable bowel syndrome, osteoporosis, polio. PAST SURGICAL HISTORY: Hysterectomy, tonsillectomy, tubal ligation, rectocele, muscle transplant left leg due to history of polio, bladder suspension, right wrist surgery to repair nerve and tendon, bilateral cataract lens implant, partial hysterectomy, skin cancer removed. SOCIAL HISTORY: The patient lives alone. No smoking. Alcohol, drinks some wine occasionally. FAMILY HISTORY: Family history of stroke. HOME MEDICATIONS: 1. Catapres 0.2 mg p.o. at bedtime. 2. Norvasc 5 mg p.o. daily. 3. Multivitamin 1 tablet p.o. daily. 4. Singulair 10 mg bedtime. 5. Synthroid 137 mcg p.o. daily. 6. Kanika 180 mg p.o. daily. 7. Bentyl 20 mg p.o. daily p.r.n. 8. Lipitor 10 mg p.o. daily. 9. Xanax 0.5 p.o. b.i.d. p.r.n. ALLERGIES: Allergies to PERCOCET, FOSAMAX, BACITRACIN, PROLIA, EPINEPHRINE, MOTRIN, LEVAQUIN, NEOMYCIN, OXYCODONE, POLYMYXIN B. ZANTAC, SULFA. PHYSICAL EXAMINATION: On examination, temperature 97.1 pulse 72, respiration 16, blood pressure 141/82, pulse ox 96% on room air. GENERAL APPEARANCE: Thin built, sitting up in bed, not in distress, BMI 15.9. EYES: Pupil equal. Conjunctivae pale. HEENT: External appearance of nose and ears normal. Oral cavity normal. NECK: JVD not raised. Mass not palpable. RESPIRATORY: Effort normal. LUNGS: Fair entry. CARDIOVASCULAR: First and second sounds normal. No edema. ABDOMEN: Soft, nontender. Liver and spleen not palpable. LYMPHATIC: No lymph node palpable in the neck or axillae. PSYCHIATRY: Alert and oriented x3. Mood and affect normal. NEUROLOGICAL: Pupils equal. Cranial nerves grossly intact. Power and sensation grossly intact. MUSCULOSKELETAL: Diffuse wasting of muscles. Left hand, left wrist in an Oscar wrap. INVESTIGATIONS: White count 7.4, hemoglobin 13. Potassium 4.0. BUN 17, creatinine 0.68. The patient did have x-rays of the hip, pelvis, wrist x-ray, hip CT and lumbar spine x-ray all showed evidence of osteoarthritis and osteopenia. No fracture was detected. ASSESSMENT: 1. The patient took a missed a step on a step with blunt injury to different joints and with no evidence of fracture. 2. Chronic osteoporosis. 3. Moderate protein-calorie malnutrition. Patient has diffuse wasting of muscles and body mass index of 15.9. 4. Essential hypertension. 5. Hypothyroidism. 6. Hyperlipidemia. 7. Chronic urinary urge incontinence. 8. Irritable bowel syndrome. PLAN: Home medications are resumed including her blood pressure medications. The patient is on a rather hefty dose of Synthroid. Given her age and body frame, we will check to make sure if not she is being over replaced. Pain control is in place per Orthopedics. Care was discussed with the patient. We will check a free T4 and a TSH tomorrow morning. Thank you Dr. Gaming. VIPUL / ALONDRA: [id number] /
[2018-01-08] MEDS ORDERED: DIAZEPAM 5 MG TAB PO ONE (08:30)
[2018-01-08] MEDS: amLODIPine 5 MG TAB PO SCH (08:34)
--- NOTE | 2018-01-08 08:44 | P.PN ---
Subjective Progress Note Date: 01/08/18 Principal diagnosis: Low back pain. Left wrist contusion. This is an 87 year old female who is admitted with intractable hip pain and left wrist pain. Today she states that it's her left lower back that is painful today. She states that she is unable to ambulate. Although, nursing states that she has ambulated to the bathroom. Vital signs are stable. Objective - Vital Signs Vital signs: Vital Signs Temp 98.2 F 01/08/18 00:10 Pulse 75 01/08/18 00:10 Resp 18 01/08/18 07:39 BP 122/78 01/08/18 07:39 Pulse Ox 96 01/08/18 07:39 Intake & Output 01/07/18 01/08/18 01/08/18 18:59 06:59 18:59 Intake Total 918 520 Output Total 1000 Balance -82 520 Weight 40.823 kg Intake: IV 560 Sodium Chloride 0.9% 1, 560 000 ml @ 75 mls/hr IV . [id number] ONE Rx#:[id number] Oral 358 520 Output: Urine 1000 Other: # Voids 1 1 - Exam This is a pleasant 87-year-old female in no acute distress. She is alert and oriented 3. Her daughter is present at bedside. Exam of the left wrist reveals that her splint is intact. She has full finger motion without difficulty or pain. She has normal sensation to the fingers. Neurovascular status to the upper extremities intact. Exam of the low back reveals pain on palpation about the mid lower lumbar and sacral region. Exam the lower extremities reveals that she can move freely in bed. She is able lift each leg off the bed independently. No pain with internal or external rotation of the hips. Full foot and ankle motion without difficulty or pain. Neurovascular status to the lower extremities is intact. - Labs CBC & Chem 7: 01/06/18 15:37 01/06/18 15:37 Assessment and Plan (1) Low back pain Current Visit: Yes Status: Acute Code(s): M54.5 - LOW BACK PAIN SNOMED Code(s): 533982258 (2) Contusion of left wrist Current Visit: Yes Status: Acute Code(s): S60.212A - CONTUSION OF LEFT WRIST , INITIAL ENCOUNTER SNOMED Code(s): 55971663008980109 (3) Fall Current Visit: Yes Status: Acute Code(s): W19.XXXA - UNSPECIFIED FALL, INITIAL ENCOUNTER SNOMED Code(s): 6044023 (4) Hip pain Current Visit: Yes Status: Acute Code(s): M25.559 - PAIN IN UNSPECIFIED HIP SNOMED Code(s): 19801755 (5) Unable to ambulate Current Visit: Yes Status: Acute Code(s): R26.2 - DIFFICULTY IN WALKING, NOT ELSEWHERE CLASSIFIED SNOMED Code(s): 332375866 Plan: The clinical and x-ray findings are discussed with the patient and her family. Her MRI is hopefully today. She may need inpatient rehab placement if unable to ambulate independently. We will continue to follow.
[2018-01-08] MEDS: SENNOSIDES-DOCUSATE SODIUM 1 EACH TAB PO SCH (09:10)
[2018-01-08] MEDS: Acetaminophen-Codeine 300-30mg TAB PO PRN ×2 (09:43→18:27)
--- NOTE | 2018-01-08 12:44 | MR ---
EXAMINATION TYPE: MR lumbar spine wo con DATE OF EXAM: 01/08/2018 COMPARISON: Lumbar spine x-ray from yesterday HISTORY: ACUTE LOW BACK PAIN, RADICULOPATHY, S/P FALL TECHNIQUE: Multiplanar, multisequence imaging of the lumbar spine is performed without IV contrast. FINDINGS: Sagittal images of the lumbar spine show vertebral body heights and alignment to appear sat isfactory. Multilevel disc desiccation is seen but disc space heights are fairly well-maintained. No suspicious posterior disc herniations are seen on sagittal images The conus medullaris is somewhat h igh in position ending at mid T12 level. No abnormal signal or suspicious clumping of lumbosacral ner ve roots is noted. 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 There is dural sheath ectasia of the exiting lower thoracic nerv e roots seen on sagittal images 5 and 11 bilaterally. The bone marrow signal intensity is within norm al limits. No significant spurring is noted. Axial images show the T12-L1, L1-L2, and L2-L3 levels to appear within normal limits. Axial images at L3-L4 level show mild facet arthropathy with mild broad disc bulge. Bilateral neural foramina are patent. Spinal canal is preserved. Axial images at L4-L5 level show mild ligamentum flavum hypertrophy and mild disc broad disc bulge bu t spinal canal is preserved and bilateral neural foramina are patent. Axial images at L5-S1 level show mild facet degenerative changes bilaterally. There is central disc p rotrusion seen but spinal canal is preserved and bilateral neural foramina are patent. There is 1.4 cm likely simple cyst upper pole level right kidney axial image 24, artifact felt presen t within the anterior liver at this level. A few smaller cysts are likely present scattered throughou t both kidneys. IMPRESSION: Some fairly mild multilevel degenerative changes in the mid to lower lumbar spine as deta iled above especially for patient's chronologic age
[2018-01-08] MEDS: MULTIVITAMINS, THERA 1 EACH TAB PO SCH (13:40)
[2018-01-08] MEDS: MONTELUKAST 10 MG TAB PO SCH (20:07)
[2018-01-08] MEDS: cloNIDine HCL 0.2 MG TAB PO SCH (20:07)
--- NOTE | 2018-01-09 07:12 | PN ---
PROGRESS NOTE DATE OF SERVICE: 01/08/2018 PRESENTING COMPLAINT: Fall. INTERVAL HISTORY: This patient presented with fall with multiple blunt injuries. No obvious evidence of fractures, having pain in the hip and lower back. Did have an MRI earlier today. Otherwise, tolerating a diet. The patient's family is present including her daughter and son-in-law. REVIEW OF SYSTEMS: Review of systems done for constitutional, cardiovascular, GI, pulmonary, musculoskeletal; relevant findings as above. CURRENT MEDICATIONS: Current medications are reviewed. PHYSICAL EXAMINATION: On examination, temperature 98.2, pulse 75, respirations 14, blood pressure 119/72, pulse ox 97% on room air. GENERAL APPEARANCE: Sitting up, awake. EYES: Pupils equal. Conjunctivae normal. HENT: External appearance of nose and ears normal. Oral cavity normal. NECK: JVD not raised. Mass not palpable. RESPIRATORY: Effort normal. LUNGS: Clear. CARDIOVASCULAR: First and second sounds normal. No edema. ABDOMEN: Soft, nontender. Liver and spleen not palpable. PSYCHIATRY: Alert and oriented x3. Mood and affect normal. INVESTIGATIONS: TSH is 0.909. ASSESSMENT: 1. Fall with multiple blunt injuries, no evidence of fracture. 2. Chronic osteoporosis. 3. Moderate protein-calorie malnutrition. 4. Essential hypertension. 5. Hypothyroidism with some over replacement with Synthroid. 6. Hyperlipidemia. 7. Chronic urge incontinence. 8. Irritable bowel syndrome. PLAN: Will cut back on the patient's dose of Synthroid to 100 mcg after skipping for 1 day. Will follow. MMODL / IJN: [id number] /
[2018-01-09] MEDS: amLODIPine 5 MG TAB PO SCH (08:22)
[2018-01-09] MEDS: ATORVASTATIN 10 MG TAB PO SCH (08:22)
[2018-01-09] MEDS: SENNOSIDES-DOCUSATE SODIUM 1 EACH TAB PO SCH (08:22)
--- NOTE | 2018-01-09 08:29 | P.PN ---
Subjective Progress Note Date: 01/09/18 Principal diagnosis: Low back pain. Left wrist contusion. This is an 87 year old female who is admitted with intractable hip pain and left wrist pain. The MRI of her lumbar spine is unremarkable. No fractures is seen no large disc herniations noted. The patient states that her pain is improved today. She did ambulate in the hallway yesterday. The patient and her daughter are requesting evaluation by Dr. Ring for the lesion on the left side of her face. She had a biopsy done on Friday at Dr. Skelton's office. She states that Dr. iRng has removed other lesions in the past. Objective - Vital Signs Vital signs: Vital Signs Temp 98.2 F 01/09/18 07:20 Pulse 78 01/09/18 07:20 Resp 16 01/09/18 07:20 BP 128/74 01/09/18 07:20 Pulse Ox 94 L 01/09/18 00:37 Intake & Output 01/08/18 01/09/18 01/09/18 18:59 06:59 18:59 Intake Total 697 Balance 697 Intake: Oral 697 Other: # Voids 1 2 # Bowel Movements 1 - Exam This is a pleasant 87-year-old female in no acute distress. She is alert and oriented 3. Her daughter is present at bedside. The Band-Aid to the left side of her face is removed. The area of her lesion excision appears a little soupy. No erythema or active drainage noted. Exam of the left wrist reveals that her splint is intact. She has full finger motion without difficulty or pain. She has normal sensation to the fingers. Neurovascular status to the upper extremities intact. Exam of the low back reveals pain on palpation about the mid lower lumbar and sacral region. Exam the lower extremities reveals that she can move freely in bed. She is able lift each leg off the bed independently. No pain with internal or external rotation of the hips. Full foot and ankle motion without difficulty or pain. Neurovascular status to the lower extremities is intact. - Labs CBC & Chem 7: 01/06/18 15:37 01/06/18 15:37 Assessment and Plan (1) Low back pain Current Visit: Yes Status: Acute Code(s): M54.5 - LOW BACK PAIN SNOMED Code(s): 096353566 (2) Contusion of left wrist Current Visit: Yes Status: Acute Code(s): S60.212A - CONTUSION OF LEFT WRIST , INITIAL ENCOUNTER SNOMED Code(s): 25128055696958779 (3) Fall Current Visit: Yes Status: Acute Code(s): W19.XXXA - UNSPECIFIED FALL, INITIAL ENCOUNTER SNOMED Code(s): 9668384 (4) Hip pain Current Visit: Yes Status: Acute Code(s): M25.559 - PAIN IN UNSPECIFIED HIP SNOMED Code(s): 32373051 (5) Unable to ambulate Current Visit: Yes Status: Acute Code(s): R26.2 - DIFFICULTY IN WALKING, NOT ELSEWHERE CLASSIFIED SNOMED Code(s): 210496823 Plan: The clinical and x-ray findings are discussed with the patient and her family. The patient is requesting evaluation from Dr. Ring for follow-up regarding the excision of the lesion of the left side of her face. She most likely not meet criteria for inpatient rehab. We'll plan discharged to home tomorrow with home care.
[2018-01-09] MEDS: Acetaminophen-Codeine 300-30mg TAB PO PRN (09:09)
[2018-01-09] MEDS: MULTIVITAMINS, THERA 1 EACH TAB PO SCH (11:10)
[2018-01-09] MEDS: MONTELUKAST 10 MG TAB PO SCH (20:03)
[2018-01-09] MEDS: ALPRAZolam 0.5 MG TAB PO PRN (20:03)
[2018-01-09] MEDS: DICYCLOMINE 20 MG TAB PO PRN (20:03)
[2018-01-09] MEDS: cloNIDine HCL 0.2 MG TAB PO SCH (20:03)
--- NOTE | 2018-01-09 22:10 | PN ---
PROGRESS NOTE DATE OF SERVICE: 01/09/2018 PRESENTING COMPLAINT: Fall. INTERVAL HISTORY: This is a patient who presented following multiple blunt injuries. No fracture. Still having pain. MRI of chest and abdomen was negative. REVIEW OF SYSTEMS: Done for constitutional, cardiovascular, GI, pulmonary; relevant findings as above. CURRENT MEDICATIONS: Reviewed. EXAMINATION: Temperature 98.2, pulse 78, respirations 16, blood pressure 128/74, pulse ox 94% on room air. GENERAL APPEARANCE: Sitting up, awake, comfortable. EYES: Pupils equal. Conjunctivae normal. HEENT: External appearance of nose and ears normal. Oral cavity normal. NECK: JVD not raised. Mass not palpable. RESPIRATORY: Effort normal. Lungs are clear. CARDIOVASCULAR: First and second sounds normal. No edema. ABDOMEN: Soft, nontender. Liver and spleen not palpable. PSYCHIATRY: Alert and oriented x3. Mood and affect normal. INVESTIGATIONS: No blood work from today. ASSESSMENT: 1. Fall with multiple blunt injured. No evidence of fractures. 2. Chronic osteoporosis. 3. Moderate protein-calorie malnutrition. 4. Essential hypertension. 5. Hypothyroidism with some over-replacement. 6. Hyperlipidemia. 7. Chronic urinary urge incontinence. 8. Irritable bowel syndrome. PLAN: Patient's dose of Synthroid had been cut back. Pain medications per Ortho. They plan to send the patient to rehab. Care was discussed with the patient. MMODL / IJN: [id number] /
[2018-01-10] MEDS: LEVOTHYROXINE 100 MCG TAB PO SCH (05:05)
[2018-01-10] MEDS: SENNOSIDES-DOCUSATE SODIUM 1 EACH TAB PO SCH (09:19)
[2018-01-10] MEDS: ATORVASTATIN 10 MG TAB PO SCH (09:19)
[2018-01-10] MEDS: Acetaminophen-Codeine 300-30mg TAB PO PRN (09:19)
[2018-01-10] MEDS: amLODIPine 5 MG TAB PO SCH (09:19)
--- NOTE | 2018-01-10 10:17 | P.PN ---
Subjective Progress Note Date: 01/10/18 Principal diagnosis: Low back pain. Left wrist contusion. This is an 87 year old female who is admitted with intractable hip pain and left wrist pain. The MRI of her lumbar spine is unremarkable. No fractures is seen no large disc herniations noted. The patient states that her pain is improved today. She did ambulate in the hallway yesterday. She has no new complaints or concerns. Objective - Vital Signs Vital signs: Vital Signs Temp 98.4 F 01/10/18 07:20 Pulse 73 01/10/18 07:20 Resp 16 01/10/18 07:20 BP 117/72 01/10/18 07:20 Pulse Ox 96 01/10/18 07:20 Intake & Output 01/09/18 01/10/18 01/10/18 18:59 06:59 18:59 Intake Total 700 200 Balance 700 200 Intake: Oral 700 Other 200 Other: # Voids 3 3 - Exam This is a pleasant 87-year-old female in no acute distress. She is alert and oriented 3. Her daughter is present at bedside. Exam of the left wrist reveals that her splint is intact. She has full finger motion without difficulty or pain. She has normal sensation to the fingers. Neurovascular status to the upper extremities intact. Exam of the low back reveals pain on palpation about the mid lower lumbar and sacral region. Exam the lower extremities reveals that she can move freely in bed. She is able lift each leg off the bed independently. No pain with internal or external rotation of the hips. Full foot and ankle motion without difficulty or pain. Neurovascular status to the lower extremities is intact. - Labs CBC & Chem 7: 01/06/18 15:37 01/06/18 15:37 Assessment and Plan (1) Low back pain Current Visit: Yes Status: Acute Code(s): M54.5 - LOW BACK PAIN SNOMED Code(s): 473307391 (2) Contusion of left wrist Current Visit: Yes Status: Acute Code(s): S60.212A - CONTUSION OF LEFT WRIST , INITIAL ENCOUNTER SNOMED Code(s): 00426823293131123 (3) Fall Current Visit: Yes Status: Acute Code(s): W19.XXXA - UNSPECIFIED FALL, INITIAL ENCOUNTER SNOMED Code(s): 7228125 (4) Hip pain Current Visit: Yes Status: Acute Code(s): M25.559 - PAIN IN UNSPECIFIED HIP SNOMED Code(s): 07009695 (5) Unable to ambulate Current Visit: Yes Status: Acute Code(s): R26.2 - DIFFICULTY IN WALKING, NOT ELSEWHERE CLASSIFIED SNOMED Code(s): 206989412 Plan: The clinical and x-ray findings are discussed with the patient and her family. She is to continue with physical therapy today. We are planning discharge to home versus rehab tomorrow or Friday.
[2018-01-10] MEDS: MULTIVITAMINS, THERA 1 EACH TAB PO SCH (12:28)
[2018-01-10] MEDS: cloNIDine HCL 0.2 MG TAB PO SCH (21:29)
[2018-01-10] MEDS: MONTELUKAST 10 MG TAB PO SCH (21:29)
[2018-01-10] MEDS: ALPRAZolam 0.5 MG TAB PO PRN (21:29)
[2018-01-11] MEDS: LEVOTHYROXINE 100 MCG TAB PO SCH (07:02)
[2018-01-11] MEDS: ATORVASTATIN 10 MG TAB PO SCH (08:56)
[2018-01-11] MEDS: amLODIPine 5 MG TAB PO SCH (08:56)
[2018-01-11] MEDS: SENNOSIDES-DOCUSATE SODIUM 1 EACH TAB PO SCH (08:59)
[2018-01-11] MEDS ORDERED: LOPERAMIDE 2 MG CAP PO PRN (09:48)
[2018-01-11] MEDS: DICYCLOMINE 20 MG TAB PO PRN (10:14)
[2018-01-11] MEDS: ALPRAZolam 0.5 MG TAB PO PRN (10:14)
--- NOTE | 2018-01-11 10:21 | P.PN ---
Subjective Progress Note Date: 01/11/18 Principal diagnosis: Low back pain. Left wrist contusion. This is an 87 year old female who is admitted with intractable hip pain and left wrist pain. The MRI of her lumbar spine is unremarkable. No fractures is seen no large disc herniations noted. The patient states that her pain is improved today. She did ambulate in the hallway yesterday. She has no new complaints or concerns. She is awaiting rehab placement. Objective - Vital Signs Vital signs: Vital Signs Temp 97.8 F 01/11/18 07:02 Pulse 62 01/11/18 07:02 Resp 16 01/11/18 07:02 BP 128/64 01/11/18 07:02 Pulse Ox 94 L 01/11/18 07:02 Intake & Output 01/10/18 01/11/18 01/11/18 18:59 06:59 18:59 Intake Total 500 600 350 Balance 500 600 350 Intake: Oral 500 600 350 Other: Voiding Method Toilet Toilet Toilet # Voids 2 1 2 - Exam This is a pleasant 87-year-old female in no acute distress. She is alert and oriented 3. Her daughter is present at bedside. Exam of the left wrist reveals that her splint is intact. She has full finger motion without difficulty or pain. She has normal sensation to the fingers. Neurovascular status to the upper extremities intact. Exam of the low back reveals pain on palpation about the mid lower lumbar and sacral region. Exam the lower extremities reveals that she can move freely in bed. She is able lift each leg off the bed independently. No pain with internal or external rotation of the hips. Full foot and ankle motion without difficulty or pain. Neurovascular status to the lower extremities is intact. - Labs CBC & Chem 7: 01/06/18 15:37 01/06/18 15:37 Assessment and Plan (1) Low back pain Current Visit: Yes Status: Acute Code(s): M54.5 - LOW BACK PAIN SNOMED Code(s): 518461737 (2) Contusion of left wrist Current Visit: Yes Status: Acute Code(s): S60.212A - CONTUSION OF LEFT WRIST , INITIAL ENCOUNTER SNOMED Code(s): 52738099451735930 (3) Fall Current Visit: Yes Status: Acute Code(s): W19.XXXA - UNSPECIFIED FALL, INITIAL ENCOUNTER SNOMED Code(s): 1856394 (4) Hip pain Current Visit: Yes Status: Acute Code(s): M25.559 - PAIN IN UNSPECIFIED HIP SNOMED Code(s): 75412650 (5) Unable to ambulate Current Visit: Yes Status: Acute Code(s): R26.2 - DIFFICULTY IN WALKING, NOT ELSEWHERE CLASSIFIED SNOMED Code(s): 283481741 Plan: The clinical and x-ray findings are discussed with the patient and her family. She is to continue with physical therapy today. We are planning discharge to home versus rehab tomorrow or Friday.
[2018-01-11] MEDS: MULTIVITAMINS, THERA 1 EACH TAB PO SCH (12:20)
[2018-01-11] MEDS: cloNIDine HCL 0.2 MG TAB PO SCH (20:31)
[2018-01-11] MEDS: MONTELUKAST 10 MG TAB PO SCH (20:31)
[2018-01-12] MEDS: LEVOTHYROXINE 100 MCG TAB PO SCH (06:15)
[2018-01-12] MEDS: Acetaminophen-Codeine 300-30mg TAB PO PRN ×2 (09:12→14:40)
[2018-01-12] MEDS: ATORVASTATIN 10 MG TAB PO SCH (09:13)
[2018-01-12] MEDS: amLODIPine 5 MG TAB PO SCH (09:13)
[2018-01-12] MEDS: SENNOSIDES-DOCUSATE SODIUM 1 EACH TAB PO SCH (09:14)
[2018-01-12] MEDS: MULTIVITAMINS, THERA 1 EACH TAB PO SCH (12:04)
--- NOTE | 2018-01-12 13:32 | P.PN ---
Subjective This is Dr. sheet covering Dr. Franklin on 01/12/2018 for medical consultation, This is a pleasant 87 years old female with past medical history of hyperlipidemia, hypertension, liver disease, thyroid disease, who presents after she fell and hurt her lower back and left wrist. Patient she was admitted under orthopedic team. She underwent extensive workup including hip x- ray, resect x-ray, head CT, lumbar spine x-ray and MRI which were unremarkable other than chronic degenerative changes, please see reports. Patient pain is controlled and she is being discharge today. As per recommendation she supposed to go to rehab however this stopped on the she is going home today. Patient is using a walker last time she used it was this morning with no difficulties Patient denies any other new complaint to me, she denies chest pain, denies dyspnea, no change in urine or bowel habits, no fever Objective - Vital Signs Vital signs: Vital Signs Temp 98.0 F 01/12/18 07:14 Pulse 73 01/12/18 07:14 Resp 16 01/12/18 07:14 BP 141/67 01/12/18 07:14 Pulse Ox 97 01/12/18 07:14 Intake & Output 01/11/18 01/12/18 01/12/18 18:59 06:59 18:59 Intake Total 850 300 300 Balance 850 300 300 Weight 40.823 kg Intake: Oral 850 300 300 Other: Voiding Method Toilet Toilet # Voids 3 3 - Exam GENERAL: The patient is alert and oriented x3, not in any acute distress. HEENT: Pupils are round and equally reacting to light. EOMI. No scleral icterus. No conjunctival pallor. Normocephalic, atraumatic. No pharyngeal erythema. No thyromegaly. CARDIOVASCULAR: S1 and S2 present. No murmurs, rubs, or gallops. PULMONARY: Chest is clear to auscultation, no wheezing or crackles. ABDOMEN: Soft, nontender, nondistended, normoactive bowel sounds. No palpable organomegaly. MUSCULOSKELETAL: No joint swelling or deformity. Left wrist implant is in place EXTREMITIES: No cyanosis, clubbing, or pedal edema. NEUROLOGICAL: Gross neurological examination did not reveal any focal deficits. SKIN: No rashes. - Labs CBC & Chem 7: 01/06/18 15:37 01/06/18 15:37 Assessment and Plan Assessment: -Fall, no loss of consciousness and -Degenerative joint disease -Essential hypertension -Hypothyroidism -Hyperlipidemia -Irritable bowel syndrome Plan: Continue with the same and treatment of Tylenol 3 and the other medication, continue with symptomatic treatment, and her pain that looks controlled. Patient is smiling while she was lying in bed and she feels she is back to her usual state and ready for discharge. Patient is going to be discharged today by the primary team. Patient looks stable for me for discharge I recommended that the patient follow-up with her primary doctor in 1 week, patient was instructed Thank you for consulting us this with free to contact us for any further question or clarification
[2018-01-12 14:49] VITALS: BP 142/68; PULSE 101; RESP 18; TEMP 98
== END 2018-01-12 15:30 | disposition home health service (06) | DRG 552 ==
LOC: EC 11:55 → 3SUR 15:46 → OBSVTOIN 01-08 09:19
PROVIDERS: ADMIT Orthopaedic Surgery; ATTEND Orthopaedic Surgery
PROC: 2W39X1Z Immobilization of Left Upper Extremity using Splint (ICD-10-PCS; principal; 2018-01-07)
DX: M54.5 Low back pain (principal); E44.0 Moderate protein-calorie malnutrition; Z68.1 Body mass index [BMI] 19.9 or less, adult; E03.9 Hypothyroidism, unspecified; E78.5 Hyperlipidemia, unspecified; I10 Essential (primary) hypertension; K58.9 Irritable bowel syndrome, unspecified; M19.90 Unspecified osteoarthritis, unspecified site; M81.0 Age-related osteoporosis without current pathological fracture; N39.41 Urge incontinence; S60.212A Contusion of left wrist, initial encounter; W19.XXXA Unspecified fall, initial encounter; Z79.899 Other long term (current) drug therapy; Z82.3 Family history of stroke; Z85.828 Personal history of other malignant neoplasm of skin; Z86.12 Personal history of poliomyelitis; Z90.710 Acquired absence of both cervix and uterus; Z96.1 Presence of intraocular lens; Z98.42 Cataract extraction status, left eye; Z98.41 Cataract extraction status, right eye; Z79.890 Hormone replacement therapy; Z88.6 Allergy status to analgesic agent; Z88.1 Allergy status to other antibiotic agents; Z88.5 Allergy status to narcotic agent; Z88.2 Allergy status to sulfonamides; Z88.8 Allergy status to other drugs, medicaments and biological substances; K76.9 Liver disease, unspecified; M25.559 Pain in unspecified hip
CPT/HCPCS: 36415; 72100; 72148; 73502; 80053; 84443; 85025; 99285

== ENCOUNTER → 2018-05-26 | Outpatient (CLI) | payer MEDICARE, BC ==
--- NOTE | 2018-05-28 11:36 | MM ---
Reason for exam: screening (asymptomatic). Last mammogram was performed 1 year ago. History: Patient has history of other cancer at age 82. Family history of breast cancer in mother at age 68, breast cancer in 2 maternal cousins, and breast cancer in 2 paternal cousins. Retro-pectoral silicone gel implants in both breasts, 1975. Excisional biopsy of the left breast, 1954. Took estrogen for 42 years beginning at age 31. Physical Findings: A clinical breast exam by your physician is recommended on an annual basis and results should be correlated with mammographic findings. MG 3D Screen Mammo Imp/Cad Bilateral CC, MLO, and ID view(s) were taken. Prior study comparison: May 19, 2017, bilateral MG 3d screen mammo imp/cad. May 17, 2016, bilateral MG 3d screen mammo imp/cad. The breast tissue is extremely dense which could obscure a lesion on mammography. Stable benign calcifications. Bilateral implants are intact. No significant changes when compared with prior studies. ASSESSMENT: Benign, BI-RAD 2 RECOMMENDATION: Routine screening mammogram of both breasts in 1 year.
== END | disposition home or self-care (01) ==
LOC: RADMAMWWP 12:56
PROVIDERS: ATTEND Family Medicine
DX: Z12.31 Encounter for screening mammogram for malignant neoplasm of breast (principal)
CPT/HCPCS: 77063; 77067

== ENCOUNTER → 2019-05-27 | Outpatient (CLI) | payer MEDICARE, BC ==
--- NOTE | 2019-05-28 13:45 | MM ---
Reason for exam: screening (asymptomatic). Last mammogram was performed 1 year ago. History: Patient has history of other cancer at age 82. Family history of breast cancer in mother at age 68, breast cancer in 2 maternal cousins, and breast cancer in 2 paternal cousins. Retro-pectoral silicone gel implants in both breasts, 1975. Excisional biopsy of the left breast, 1954. Took estrogen for 42 years beginning at age 31. Physical Findings: A clinical breast exam by your physician is recommended on an annual basis and results should be correlated with mammographic findings. MG 3D Screen Mammo Imp/Cad Bilateral CC, MLO, XCCL, and ID view(s) were taken. Prior study comparison: May 26, 2018, bilateral MG 3d screen mammo imp/cad. May 19, 2017, bilateral MG 3d screen mammo imp/cad. The breast tissue is heterogeneously dense. This may lower the sensitivity of mammography. Bilateral breast prothesis. No significant changes when compared with prior studies. ASSESSMENT: Benign, BI-RAD 2 RECOMMENDATION: Routine screening mammogram of both breasts in 1 year.
== END | disposition home or self-care (01) ==
LOC: RADMAMWWP 13:01
PROVIDERS: ATTEND Family Medicine
DX: Z12.31 Encounter for screening mammogram for malignant neoplasm of breast (principal)
CPT/HCPCS: 77063; 77067